=== PATIENT | female | born 1935 | race Caucasian/White ===

== ENCOUNTER 2020-08-04 19:17 | Inpatient (IN) | payer MEDICARE, OTHER ==
[~2020-08-04 19:17] MED LIST: ACCUPRIL40 MG PO; BENADRYL25 MG PO; CEFDINIR300 MG PO; DIFLUCAN200 MG PO; LIPITOR 10MG TA10 MG PO; MEDROL 4MG DOSEP4 MG PO; NORVASC 5MG TABL5 MG PO; NOVOLOG MI100 UNIT/3 SC; PEPCID AC20 MG PO; TOPROL XL 50 MG50 MG PO; TYLENOL #31 EACH PO
[2020-08-04 20:37] LABS: BASOPHIL 0.3 % (0-2); EOSINOPHIL 0.5 % (0-7); HCT 35.6 % (37.0-47.0); HGB 10.9 g/dl (12.5-16.0); MCH 27.5 pg (25.0-31.0); MCHC 30.6 g/dL (32.0-36.0); MCV 89.9 fL (78.0-100.0); MONOCYTE 6.7 % (0-12); MPV 9.6 fL (6.0-9.5); NEUTROPHIL 30.7 % (41-80); NRBC 0; PLT 193 K/uL (150-400); RBC 3.96 M/uL (4.20-5.40); RDW 16.5 % (11.5-14.0)
[2020-08-04 20:39] LABS: LYMPHOCYTE 59.6 % (15-48)
[2020-08-04 20:53] LABS: ALBUMIN 2.5 g/dL (3.4-5.0); BILIRUBIN - TOTAL 0.7 mg/dL (0.2-1.0); BUN/CREAT RATIO (CALC) 20.4 RATIO; CREATININE 2.35 mg/dL (0.51-0.95); POTASSIUM 5.7 mmol/L (3.5-5.1); TOTAL PROTEIN 5.5 g/dL (6.4-8.2)
[2020-08-04 20:57] LABS: BILIRUBIN 2+ mg/dL (NEGATIVE); BLOOD 2+ Ery/uL (NEGATIVE); CLARITY CLOUDY (CLEAR); COLOR YELLOW (YELLOW); GLUCOSE (U) NORMAL (NORMAL); LEUKOCYTES 1+ Leu/uL (NEGATIVE); NITRITE NEGATIVE (NEGATIVE); PROTEIN 2+ mg/dL (NEGATIVE); SPECIFIC GRAVITY >=1.030 (1.001-1.030); UROBILINOGEN 0.2 mg/dL (0.2-1.0)
[2020-08-04 20:58] LABS: LACTIC ACID 2.3 mmol/L (0.4-1.9)
[2020-08-04 21:19] LABS: AMORPHOUS URATES CRYSTALS LARGE; BACTERIA 4+
[2020-08-04 21:20] LABS: YEAST PRESENT
[2020-08-04 21:22] LABS: MUCOUS TRACE
[2020-08-04 21:53] LABS: CORONAVIRUS 2019 SARS-COV-2 NEGATIVE (NEGATIVE); INFLUENZA A NAA NEGATIVE (NEGATIVE)
[2020-08-05] MEDS ORDERED: NOVOLOG MI100 UNIT/3 SUBD (01:41)
[2020-08-05] MEDS ORDERED: METFORMIN HCL500 MG PO (01:42)
[2020-08-05 02:13] LABS: BASOPHIL 0.4 % (0-2); EOSINOPHIL 0.4 % (0-7); HCT 35.1 % (37.0-47.0); HGB 10.4 g/dl (12.5-16.0); MCHC 29.6 g/dL (32.0-36.0); MCV 91.2 fL (78.0-100.0); MONOCYTE 6.6 % (0-12); MPV 9.6 fL (6.0-9.5); NEUTROPHIL 31.9 % (41-80); NRBC 0; PLT 176 K/uL (150-400); RBC 3.85 M/uL (4.20-5.40); RDW 16.6 % (11.5-14.0); WBC 18.5 K/uL (4.0-10.5)
[2020-08-05 02:14] LABS: LYMPHOCYTE 57.7 % (15-48)
[2020-08-05 02:23] LABS: INR 1.19 (0.9-1.2); PROTHROMBIN TIME 14.3 SECONDS (11.4-13.6)
[2020-08-05 02:31] LABS: ALBUMIN 2.2 g/dL (3.4-5.0); BILIRUBIN - TOTAL 0.7 mg/dL (0.2-1.0); BUN/CREAT RATIO (CALC) 20.1 RATIO; CREATININE 2.59 mg/dL (0.51-0.95); GLOBULIN (CALCULATION) 2.9 g/dL; MAGNESIUM 1.8 mg/dL (1.8-2.4); PHOSPHORUS 5.8 mg/dL (2.6-4.7); POTASSIUM 6.4 mmol/L (3.5-5.1); TOTAL PROTEIN 5.1 g/dL (6.4-8.2)
[2020-08-05 02:37] LABS: LACTIC ACID 1.9 mmol/L (0.4-1.9)
[2020-08-05 12:25] LABS: ALBUMIN 2.2 g/dL (3.4-5.0); BUN/CREAT RATIO (CALC) 18.9 RATIO; CREATININE 2.65 mg/dL (0.51-0.95); PHOSPHORUS 5.6 mg/dL (2.6-4.7); POTASSIUM 5.9 mmol/L (3.5-5.1); URIC ACID 11.7 mg/dL (2.6-6.2)
[2020-08-06 08:08] LABS: IMMUNOGLOBULIN A, QN, SERUM 96 mg/dL (64-422); IMMUNOGLOBULIN G, QN, SERUM 535 mg/dL (586-1602); IMMUNOGLOBULIN M, QN, SERUM 14 mg/dL (26-217)
--- NOTE | 2020-08-06 11:40 | NUR ---
MIL FROM [facility] CALLED TO INQUIRE ABOUT THE PATIENT'S URINE CULTURE RESULT. SHE WAS INFORMED THAT THE RESULT WAS STILL PENDING AND PROVIDED THE NUMBER TO MEDICAL RECORDS TO ASK FOR ASSISTANCE ON FRIDAY.
--- NOTE | 2020-08-07 10:29 | NUR ---
PATIENT WAS DISCHARGED BEFORE THEY COULD BE SEEN BY WOUND CARE.
== END 2020-08-05 15:50 | disposition other institution (70) | DRG 872 ==
LOC: FER 19:17 → FMS 23:56
PROVIDERS: Emergency Medicine Emergency Medical Services; Internal Medicine; ADMIT Allergy & Immunology Allergy
DX: A41.9 Sepsis, unspecified organism (principal); N17.9 Acute kidney failure, unspecified; N30.00 Acute cystitis without hematuria; N18.9 Chronic kidney disease, unspecified; E87.5 Hyperkalemia; E83.39 Other disorders of phosphorus metabolism; M10.9 Gout, unspecified; Z20.822 Contact with and (suspected) exposure to COVID-19; E78.5 Hyperlipidemia, unspecified; E11.9 Type 2 diabetes mellitus without complications; Z66 Do not resuscitate; I12.9 Hypertensive chronic kidney disease with stage 1 through stage 4 chronic kidney disease, or unspecified chronic kidney disease; R65.20 Severe sepsis without septic shock; M19.90 Unspecified osteoarthritis, unspecified site; Z98.42 Cataract extraction status, left eye; Z98.41 Cataract extraction status, right eye; Z79.4 Long term (current) use of insulin; Z85.828 Personal history of other malignant neoplasm of skin; Z90.710 Acquired absence of both cervix and uterus; Z90.49 Acquired absence of other specified parts of digestive tract
CPT/HCPCS: 36415; 71045; 80053; 80069; 81001; 82232; 82550; 82784; 83605; 83615; 83735; 84100; 84132; 84145; 84484; 84550; 85025; 85610; 86355; 86359; 86360; 87040; 87088; 87205; 93005; 94010; 96365; 96375; J0610; J1450; J1650; J2020; J2270; J2405; J2543; J7030; J7040; U0002